=== PATIENT | male | born 1995 | race Hispanic/Latino ===

== ENCOUNTER 2018-12-01 08:25 | Emergency (ER) | payer SELFPAY ==
[2018-12-01] MEDS ORDERED: ONDANSETRON 4 MG/2 ML VIAL ONE (08:46)
[2018-12-01] MEDS ORDERED: NA CHLORIDE 0.9% 1,000 ML ONE (08:46)
[2018-12-01 08:53] LABS: Absolute Lymphocytes (CBC) 1.9 K/uL (0.7-4.9); Basophils % 0.9 % (0-1.3); Hematocrit 44.4 % (39.6-49.0); Lymphocytes % 26.5 % (15.3-44.8); MPV 8.2 fL (7.6-11.3); RBC Red Blood Cell Count 4.78 M/uL (4.33-5.43)
[2018-12-01 09:13] LABS: Bilirubin Direct 0.1 mg/dL (0-0.2); Bilirubin Total 0.5 mg/dL (0.2-1.0); Potassium 3.6 mmol/L (3.5-5.1); Protein, Total 7.3 g/dL (6.4-8.2)
[2018-12-01 09:58] LABS: Urine Blood NEGATIVE (NEG); Urine Glucose NEGATIVE (NEG); Urine Protein NEGATIVE (NEG)
--- NOTE | 2018-12-01 10:01 | ER ---
Nurse's Notes [facility] Name: Stevenson Jurado Age: 23 yrs Sex: Male : 1995 Arrival Date: 12/01/2018 Time: 08:26 Bed 5 Private MD: Unknown, Unknown Diagnosis: Nausea with vomiting, unspecified Presentation: 12/01 08:27 Presenting complaint: Patient states: vomited 4 times this morning, cramping to back aa5 and legs, SOB, and generalized weakness that began today at 0700. Denies diarrhea, denies abd pain. 08:27 Acuity: TOMASA 3 aa5 08:30 Risk Assessment: Do you want to hurt yourself or someone else? Patient reports no aa5 desire to harm self or others. Initial Sepsis Screen: Does the patient meet any 2 criteria? No. Patient's initial sepsis screen is negative. Does the patient have a suspected source of infection? No. Patient's initial sepsis screen is negative. Care prior to arrival: None. 08:30 Transition of care: patient was not received from another setting of care. Onset of aa5 symptoms was December 01, 2018. 08:30 Method Of Arrival: Ambulatory aa5 Historical: - Allergies: 08: No Known Allergies; aa5 - Home Meds: 08: None [Active]; aa5 - PMHx: 08: None; aa5 - PSHx: 08: None; aa5 - Immunization history:: Adult Immunizations unknown, Flu vaccine is not up to date. - Social history:: Smoking status: Patient/guardian denies using tobacco. - Ebola Screening: : No symptoms or risks identified at this time. - Family history:: not pertinent. - Hospitalizations: : No recent hospitalization is reported. Screenin:30 Abuse screen: Denies threats or abuse. Nutritional screening: No deficits noted. aa5 Tuberculosis screening: No symptoms or risk factors identified. Fall Risk None identified. Assessment: 08:30 General: Appears uncomfortable, Behavior is calm, cooperative. Pain: Complains of pain aa5 in back, right leg and left leg Pain currently is 0 out of 10 on a pain scale. Quality of pain is described as crampy, Pain began this morning Is intermittent. Neuro: Level of Consciousness is awake, alert, obeys commands, Oriented to person, place, time, situation. Cardiovascular: Heart tones S1 S2 present Rhythm is regular. Respiratory: Reports shortness of breath cough that is Airway is patent Respiratory effort is even, unlabored, Respiratory pattern is regular, symmetrical, Breath sounds are clear bilaterally. GI: Abdomen is flat, non-distended, Bowel sounds present X 4 quads. Abd is soft and non tender X 4 quads. Reports nausea, vomiting, Patient currently denies diarrhea. : No signs and/or symptoms were reported regarding the genitourinary system. EENT: No signs and/or symptoms were reported regarding the EENT system. Derm: Skin is pink, warm \T\ dry. Musculoskeletal: Range of motion: intact in all extremities. 09:33 Reassessment: Patient is alert, oriented x 3, equal unlabored respirations, skin aa5 warm/dry/pink. Patient denies pain at this time. Patient states feeling better. GI: Patient currently denies nausea, vomiting. 10:18 Reassessment: Patient is alert, oriented x 3, equal unlabored respirations, skin aa5 warm/dry/pink. Vital Signs: 08:28 BP 146 / 84; Pulse 97; Resp 18 S; Temp 98.7(O); Pulse Ox 99% on R/A; Weight 68.04 kg aa5 (R); Height 5 ft. 5 in. (165.10 cm) (R); Pain 0/10; 09:30 BP 118 / 78; Pulse 71; Resp 18 S; Pulse Ox 100% on R/A; Pain 0/10; aa5 08:28 Body Mass Index 24.96 (68.04 kg, 165.10 cm) aa5 ED Course: 08:26 Patient arrived in ED. ag5 08:27 Unknown, Unknown is Private Physician. ag5 08:27 Arm band placed on Patient placed in an exam room, on a stretcher. aa5 08:27 Patient has correct armband on for positive identification. Placed in gown. Bed in low aa5 position. Call light in reach. Side rails up X2. Pulse ox on. NIBP on. 08:30 Casimiro Douglass MD is Attending Physician. rn 08:35 Goldie Coombs, FRANKLYN is Primary Nurse. aa5 08:36 Triage completed. aa5 08:40 EKG done, by target aircraft technician. reviewed by Casimiro Douglass MD. tc 08:43 Initial lab(s) drawn, by me, sent to lab. Inserted saline lock: 20 gauge in right aa5 antecubital area, using aseptic technique. Blood collected. 09:35 Urine collected: clean catch specimen, clear. aa5 10:18 No provider procedures requiring assistance completed. IV discontinued, intact, aa5 bleeding controlled, No redness/swelling at site. Pressure dressing applied. Administered Medications: 08:50 Drug: NS 0.9% 1000 ml Route: IV; Rate: 1000 ml; Site: right antecubital; aa5 09:33 Follow up: IV Status: Completed infusion; IV Intake: 1000ml aa5 08:50 Drug: Zofran 4 mg Route: IVP; Site: right antecubital; aa5 09:00 Follow up: Response: No adverse reaction; Nausea is decreased aa5 Intake: 09:33 IV: 1000ml; Total: 1000ml. aa5 Outcome: 10:01 Discharge ordered by . rn 10:18 Discharged to home ambulatory. aa5 10:18 Condition: improved 10:18 Discharge instructions given to patient, Instructed on discharge instructions, follow up and referral plans. medication usage, Demonstrated understanding of instructions, follow-up care, medications, Prescriptions given X 1. 10:20 Patient left the ED. aa5 Signatures: Casimiro Douglass MD MD rn Calderon, Audri, RN RN aa5 Suzi Seay, traffic analyst EKG [facility] Sean De La Vega 5
--- NOTE | 2018-12-01 10:02 | EDPHYS ---
Physician Documentation [facility] Name: Stevenson Jurado Age: 23 yrs Sex: Male : 1995 Arrival Date: 12/01/2018 Time: 08:26 Bed 5 Private MD: Unknown, Unknown ED Physician Casimiro Douglass HPI: 12/01 08:50 This 23 yrs old Male presents to ER via Unassigned with complaints of rn Breathing Difficulty, Nausea/Vomiting. 08:50 The patient presents to the emergency department with nausea, vomiting, 4 times today. rn Onset: The symptoms/episode began/occurred this morning. Possible causes: unknown. The symptoms are aggravated by nothing. The symptoms are alleviated by nothing. Severity of symptoms: At their worst the symptoms were moderate in the emergency department the symptoms are unchanged. The patient has not experienced similar symptoms in the past. The patient has not recently seen a physician. Reports woke up today nauseated, threw up 4 times, now just dry heaves, no diarrhea, no abd pain, reports chills and cramps, denies recent over-work or over-heating, reports had just gotten to work today when began. Reports after vomiting, coughs, but denies choking episode or difficulty breathing.. Historical: - Allergies: 08: No Known Allergies; aa5 - Home Meds: 08: None [Active]; aa5 - PMHx: 08: None; aa5 - PSHx: 08: None; aa5 - Immunization history:: Adult Immunizations unknown, Flu vaccine is not up to date. - Social history:: Smoking status: Patient/guardian denies using tobacco. - Ebola Screening: : No symptoms or risks identified at this time. - Family history:: not pertinent. - Hospitalizations: : No recent hospitalization is reported. ROS: 08:50 Constitutional: Negative for fever, and weight loss, Eyes: Negative for injury, pain, rn redness, and discharge, ENT: Negative for injury, pain, and discharge, Neck: Negative for injury, pain, and swelling, Cardiovascular: Negative for chest pain, palpitations, and edema, Respiratory: Negative for shortness of breath, cough, wheezing, and pleuritic chest pain, Abdomen/GI: + nausea and vomiting, negative for abdominal pain MS/Extremity: Negative for injury and deformity, Skin: Negative for injury, rash, and discoloration, Neuro: Negative for headache, numbness, tingling, and seizure. Exam: 08:50 Constitutional: Thin male, wretching while walking to room without assistance. rn Head/Face: Normocephalic, atraumatic. Eyes: Pupils equal round and reactive to light, extra-ocular motions intact. Lids and lashes normal. Conjunctiva and sclera are non-icteric and not injected. Cornea within normal limits. Periorbital areas with no swelling, redness, or edema. ENT: dry MM Neck: Trachea midline, no thyromegaly or masses palpated, and no cervical lymphadenopathy. Supple, full range of motion without nuchal rigidity, or vertebral point tenderness. No Meningismus. Cardiovascular: Regular rate and rhythm with a normal S1 and S2. No gallops, murmurs, or rubs. Normal PMI, no JVD. No pulse deficits. Respiratory: Lungs have equal breath sounds bilaterally, clear to auscultation and percussion. No rales, rhonchi or wheezes noted. No increased work of breathing, no retractions or nasal flaring. Abdomen/GI: soft, non-tender, no rebound or peritoneal signs. Skin: Warm, dry MS/ Extremity: Pulses equal, no cyanosis. Neurovascular intact. Full, normal range of motion. Equal circumference. Neuro: Awake and alert, GCS 15, oriented to person, place, time, and situation. Cranial nerves II-XII grossly intact. Motor strength 5/5 in all extremities. Sensory grossly intact. Cerebellar exam normal. Normal gait. 09:12 ECG was reviewed by the Attending Physician. rn Vital Signs: 08:28 BP 146 / 84; Pulse 97; Resp 18 S; Temp 98.7(O); Pulse Ox 99% on R/A; Weight 68.04 kg aa5 (R); Height 5 ft. 5 in. (165.10 cm) (R); Pain 0/10; 09:30 BP 118 / 78; Pulse 71; Resp 18 S; Pulse Ox 100% on R/A; Pain 0/10; aa5 08:28 Body Mass Index 24.96 (68.04 kg, 165.10 cm) aa5 MDM: 08:30 Patient medically screened. rn 09:59 Differential diagnosis: viral gastroenteritis, gastroenteritis. Data reviewed: vital rn signs, nurses notes, lab test result(s), and as a result, I will discharge patient. Counseling: I had a detailed discussion with the patient and/or guardian regarding: the historical points, exam findings, and any diagnostic results supporting the discharge/admit diagnosis, lab results, the need for outpatient follow up, to return to the emergency department if symptoms worsen or persist or if there are any questions or concerns that arise at home. Special discussion: I discussed with the patient/guardian in detail that at this point there is no indication for admission to the hospital. It is understood, however, that if the symptoms persist or worsen the patient needs to return immediately for re-evaluation. ED course: Feels much better, back to baseline, normal w/u, no indication for emergent ct abdomen, return precautions given and understood.. 12/01 08:36 Order name: Basic Metabolic Panel; Complete Time: 09:18 rn 12/01 08:36 Order name: CBC with Diff; Complete Time: 09:18 12/01 08:36 Order name: Hepatic Function; Complete Time: 09:18 rn 12/01 08:36 Order name: Lipase; Complete Time: 09:18 rn 12/01 08:37 Order name: CK; Complete Time: 09:18 rn 12/01 08:37 Order name: Flu; Complete Time: 09:30 rn 12/01 08:36 Order name: IV Saline Lock; Complete Time: 08:55 rn 12/01 08:36 Order name: Labs collected and sent; Complete Time: 08:55 rn 12/01 08:36 Order name: EKG; Complete Time: 08:37 rn 12/01 08:36 Order name: EKG - Nurse/Tech; Complete Time: 08:55 rn 12/01 08:37 Order name: Urine Microscopic Only rn 12/01 09:42 Order name: Urine Dipstick--Ancillary (enter results) aa5 12/01 08:37 Order name: Urine Dipstick-Ancillary (obtain specimen); Complete Time: 09:41 rn EC:12 Rate is 85 beats/min. Rhythm is regular. QRS [place] is Normal. NM interval is normal. QRS rn interval is normal. QT interval is normal. No Q waves. T waves are Normal. No ST changes noted. Clinical impression: Normal ECG. Interpreted by me. Reviewed by me. Administered Medications: :50 Drug: NS 0.9% 1000 ml Route: IV; Rate: 1000 ml; Site: right antecubital; aa5 09:33 Follow up: IV Status: Completed infusion; IV Intake: 1000ml aa5 08:50 Drug: Zofran 4 mg Route: IVP; Site: right antecubital; aa5 09:00 Follow up: Response: No adverse reaction; Nausea is decreased aa5 Disposition: 12/01/18 10:01 Discharged to Home. Impression: Nausea with vomiting, unspecified. - Condition is Stable. - Discharge Instructions: Nausea and Vomiting, Adult. - Prescriptions for Zofran ODT 4 mg Oral tablet,disintegrating - place 1 tablet by TRANSLINGUAL route every 8 hours As needed; 20 tablet. - Work release form, Medication Reconciliation Form, Thank You Letter, Antibiotic Education, Prescription Opioid Use form. - Follow up: Private Physician; When: As needed; Reason: Recheck today's complaints, Re-evaluation by your physician. - Problem is new. - Symptoms have improved. Signatures: Dispatcher [employer] EDMS Casimiro Douglass MD MD rn Calderon, Audri RN RN aa5 Corrections: (The following items were deleted from the chart) 10:20 10:01 12/01/2018 10:01 Discharged to Home. Impression: Nausea with vomiting, aa5 unspecified. Condition is Stable. Forms are Medication Reconciliation Form, Thank You Letter, Antibiotic Education, Prescription Opioid Use. Follow up: Private Physician; When: As needed; Reason: Recheck today's complaints, Re-evaluation by your physician. Problem is new. Symptoms have improved. rn
[2018-12-01 10:06] LABS: Urine Bacteria NONE SEEN /HPF (NONE SEEN); Urine Culture Reflex Order NOT NEEDED; Urine RBC <5 /HPF (NONE SEEN)
--- NOTE | 2018-12-01 11:19 | EKG ---
Test Date: 2018-12-01 Test Time: 08:43:37 Textile Machine Mechanic: QUEENIE MEASUREMENT RESULTS: Intervals: Rate: 85 MO: 148 QRSD: 96 QT: 350 QTc: 416 [place]: P: 58 MO: 148 QRS: 65 T: 39 INTERPRETIVE STATEMENTS: Normal sinus rhythm Normal ECG No previous ECG available for comparison Electronically Signed On 12-01-18 11:18:40 CDT by Bret Ray
== END 2018-12-01 10:20 | disposition home or self-care (01) ==
LOC: ER 08:25
DX: R11.2 Nausea with vomiting, unspecified (principal)
CPT/HCPCS: 36415; 80048; 80076; 81003; 81015; 82550; 83690; 85025; 87804; 93005; 96361; 96374; 99284; J2405; J7030